=== PATIENT | female | born 1945 | race Caucasian/White ===

== ENCOUNTER 2021-01-08 21:38 | Inpatient (IN) | payer OTHER, BC, SELFPAY ==
[~2021-01-08] VITALS: Ht 162.6 cm; Wt 56.7 kg
[2021-01-08 21:40] VITALS: BP_SYST 169
--- NOTE | 2021-01-08 21:40 | NUR ---
PT TO BED 2 FOR EVALUATION, GOWNED AND ATTACHED TO [facility] [place]. REPORT GIVEN TO JAVIER ROB WHO WILL ASSUME CARE.
[2021-01-08] MEDS ORDERED: cefTRIAXone 1 GM IVPB PREMIX 50 ML IV ONE (21:45)
[2021-01-08] MEDS ORDERED: NACL 0.9% 1,000 ML IV ONE (21:45)
--- NOTE | 2021-01-08 21:50 | NUR ---
PT AAO BIB AMBULANCE FOR WORSENING CONFUSION SINCE A FEVER STARTED TODAY. FAMILY REPORTED THAT FEVER WAS 101.2 AT HOME BUT PRESENTLY IS 98.0 ORAL ON ARRIVAL. PT REPORTS WORSENING HEADACHE, VERTIGO, AND SOB. FAMILY REPORTS HER CONFUSION WORSENING TODAY BEHAVING STRANGELY SINCE THIS MORNING. PT REPORTS CURRENT PAIN LEVEL 6/10 IN HEAD. PT NOTED TACHY AT 103 AND RR OF 28.
--- NOTE | 2021-01-08 21:56 | NUR ---
ER at bedside examining patient.
[2021-01-08] MEDS ORDERED: ACETAMINOPHEN 500 MG TABLET PO ONE (22:00)
[2021-01-08 22:05] LABS: BILIRUBIN,URINE NEGATIVE (NEGATIVE); BLOOD, URINE NEGATIVE (NEGATIVE); CLARITY/URINE CLEAR (CLEAR); COLOR,URINE YELLOW (YELLOW); GLUCOSE,URINE NEGATIVE (NEGATIVE); KETONES,URINE NEGATIVE (NEGATIVE); LEUKOCYTE ESTERASE ,URINE NEGATIVE (NEGATIVE); NITRITE, URINE NEGATIVE (NEGATIVE); PH,URINE 7.5 (5.0-8.0); PROTEIN URINE NEGATIVE (NEGATIVE); UROBILINOGEN,URINE 0.2 (0.2-1.0)
[2021-01-08 22:18] LABS: BASOPHILS % (AUTO) 0.3 % (0.0-2.0); EOSINOPHILS % (AUTO) 0.1 % (0.0-4.0); HEMATOCRIT 35.9 % (36-48); HEMOGLOBIN 12.3 g/dL (12.0-16.0); LYMPHOCYTES # (AUTO) 1.2 K/uL (1.0-5.5); LYMPHOCYTES % (AUTO) 11.2 % (20.5-51.5); MEAN CORPUSCULAR HEMOGLOBIN 34 pg (27-31); MEAN CORPUSCULAR HGB CONC 34 % (32-36); MEAN CORPUSCULAR VOLUME 99 fL (79.0-98.0); MONOCYTES # (AUTO) 1.1 K/uL (0.0-1.0); MONOCYTES % (AUTO) 9.8 % (1.7-9.3); NEUTROPHILS # (AUTO) 8.6 K/uL (1.8-7.7); NEUTROPHILS % (AUTO) 78.6 % (40.0-70.0); PLATELET COUNT (AUTO) 271 K/uL (130-430); RED BLOOD CELL COUNT(AUTO) 3.64 MIL/uL (4.2-6.2); RED CELL DISTRIBUTION WIDTH 11.9 % (9.0-15.0); WHITE BLOOD COUNT (AUTO) 10.9 K/uL (4.8-10.8)
--- NOTE | 2021-01-08 22:20 | NUR ---
X-ray at bedside.
--- NOTE | 2021-01-08 22:35 | NUR ---
COVID-19 swabs collected and sent lab.
[2021-01-08 22:36] LABS: ANION GAP 19 (5-15); CALCIUM 9.2 mg/dL (8.4-11.0); CHLORIDE 102 mmol/L (98-107); CREATININE 1.25 mg/dL (0.55-1.30); GLUCOSE 104 mg/dL (70-99); SODIUM SERUM 140 mmol/L (136-145); UREA NITROGEN, BLOOD 13 mg/dL (8-21)
[2021-01-08 22:41] LABS: ALANINE AMINOTRANSFERASE 13 U/L (12-78); ALBUMIN 3.4 g/dL (3.4-4.8); ASPARTATE AMINOTRANSFERASE 15 U/L (10-37); TOTAL BILIRUBIN 0.7 mg/dL (0.0-1.0)
[2021-01-08 22:44] LABS: POTASSIUM 2.4 mmol/L (3.5-5.1)
[2021-01-08] MEDS ORDERED: KCL 20 mEq in 100 mL (PREMIX) 100 ML IV ONE (23:15)
[2021-01-08] MEDS ORDERED: POTASSIUM CHLORIDE 20 MEQ TAB.PRT.SR PO ONE (23:15)
[2021-01-08] MEDS ORDERED: LORazepam 2 MG/ML VIAL IVP ONE (23:15)
--- NOTE | 2021-01-08 23:18 | NUR ---
Spoke with family () for medications, Patient's family did not remember.
[2021-01-08] MEDS ORDERED: PSEU30TA36 PO (23:54)
[2021-01-08] MEDS ORDERED: AMLO2.5T2 PO (23:54)
[2021-01-08] MEDS ORDERED: APIX2.5T PO (23:54)
[2021-01-08] MEDS ORDERED: FLEC50TA2 PO (23:54)
[2021-01-08] MEDS ORDERED: VITA100T3 PO (23:54)
[2021-01-08] MEDS ORDERED: LEVO42CA2 PO (23:54)
--- NOTE | 2021-01-08 23:55 | NUR ---
Medication reconciliation completed with information provided by patient. Any prior medication reconciliation on file was reviewed and corrected.
--- NOTE | 2021-01-09 00:43 | NUR ---
Patient will be admitted to care of Dr. Reid. Admitted to TELE unit. Will go to room 113B. Belongings list completed. Complete and up to date summary report printed. SBAR report to be given at bedside with opportunity for questions.
--- NOTE | 2021-01-09 00:50 | NUR ---
ADMISSION NOTE Received patient from ER via gurney. Patient admitted with diagnosis of HYPOKALEMIA, ENCEPHALOPATHY. Patient is awake, alert, oriented X 4. Patient oriented to hospital room, call light, toileting, pain management and safety-teach back done. Patient informed that Ebonie will be her nurse and that their room number is 113B. Personal belongings checked and Belongings List documented. Call light within reach.
--- NOTE | 2021-01-09 00:56 | NUR ---
POSSIBLE SEIZURE PT WAS BROUGHT BY ER ON GURNEY AND BEFORE MOVED INTO PATIENT ROOM PT BECAME UNRESPONSIVE, EYES ROLLED BACK, INCONTINENT. PT POSSIBLY HAD NONEPILEPTIC SEIZURE. A CODE WAS CALLED AT THE TIME, AND CHEST COMPRESSIONS BEGAN. PT THEN CAME ALERT AND SAID "NO MORE", PT WAS AWAKE AND COMPLAINING OF HEADACHE PAIN. PT NOT AWARE OF WHAT HAD TRANSPIRED. MD AT BEDSIDE ORDERED CXR, EKG, CT-BRAIN W/O CONTRAST, AND STAT TROPONIN. PT BP WAS 195/[address] NOTIFIED OF SITUATION. ORDERS RECEIVED FOR KEPPRA AND HYDRALAZINE PRN, AND CONSULT FOR DR. NDIAYE. BP TAKEN AGAIN, WAS 178/79 MO OF 89. PT TEMP WAS 98.4. BLOOD SUGAR WAS FOUND TO BE 126.
[2021-01-09] MEDS ORDERED: hydrALAZINE HCL 20 MG/ML VIAL IVP PRN (01:30)
[2021-01-09] MEDS ORDERED: levETIRAcetam 500 MG in NS 100 ML IV SCH (01:30)
[2021-01-09 02:26] VITALS: BP_SYST 146
--- NOTE | 2021-01-09 03:49 | NUR ---
RN ROUNDS PT IT ALERT, CALM. PT ATE APPLE SAUCE AND TURKEY SANDWICH NO DYSPHAGIA NOTED.
--- NOTE | 2021-01-09 05:55 | NUR ---
Consultation Paged Reason for Consultation: Possible Seizures, headache Was consult called: Y Person who was notified: Dr. Lee through text message Consulting Physician: Dr. Pineda (Dr. Lee, Roz is residential construction instructor) Ordering Physician: Angelito Lucas
--- NOTE | 2021-01-09 06:23 | NUR ---
RN ROUNDS PT RESTING IN BED. NO S/S OF DISTRESS NOTED.
--- NOTE | 2021-01-09 07:30 | NUR ---
OPENING NOTE RECEIVED PATIENT FROM NIGHT NURSE. PATIENT IS ALERT AND ORIENTED X4. ON 2 L NASAL CANNULA AND TOLERATING WELL WITH NO SIGNS OF SHORTNESS OF BREATH NOTED. IS AT THE BEDSIDE. IV IS PATENT,L SALINE LOCKED. BED LOCKED AND IN LOWEST POSITION. CALL LIGHT WITHIN REACH. SEIZURE, FALL, AND SAFETY PRECAUTIONS ARE IN PLACE. WILL CONTINUE TO MONITOR.
[2021-01-09] MEDS ORDERED: ZOLPIDEM TARTRATE 5 MG TABLET PO PRN (07:45)
[2021-01-09] MEDS ORDERED: DOCUSATE SODIUM 100 MG/10 ML UDC PO PRN (07:45)
[2021-01-09] MEDS ORDERED: HYDROcodone/ACETAMIN 7.5-325 MG TAB PO PRN (07:45)
[2021-01-09] MEDS ORDERED: ONDANSETRON HCL 4 MG/2 ML VIAL IVP PRN (07:45)
[2021-01-09] MEDS ORDERED: PROMETHAZINE HCL/CODEINE 6.25-10 mg/5 mL UDC PO PRN (07:45)
[2021-01-09] MEDS ORDERED: ACETAMINOPHEN 500 MG TABLET PO PRN (07:45)
[2021-01-09 08:00] VITALS: BP_SYST 141
[2021-01-09] MEDS ORDERED: IPRATROPIUM/ALBUTEROL SULFATE 3 ML AMPUL.NEB (DUONEB) INH ONE (08:00)
[2021-01-09] MEDS ORDERED: POTASSIUM CHLORIDE 40 MEQ, LIDOCAINE JECT 2% PF 100 MG 50 MG in NS 250 ML IV PRN (08:00)
[2021-01-09] MEDS ORDERED: IPRATROPIUM/ALBUTEROL SULFATE 3 ML AMPUL.NEB (DUONEB) INH PRN (08:00)
[2021-01-09 08:36] VITALS: BP_SYST 146
[2021-01-09] MEDS: PANTOPRAZOLE SODIUM 40 MG TAB PO SCH (08:40)
[2021-01-09 08:41] LABS: PROTHROMBIN TIME 10.1 SECS (9.5-12.5)
[2021-01-09] MEDS: APIXABAN 2.5 MG TABLET PO SCH ×2 (08:41→21:30)
[2021-01-09] MEDS: FLECAINIDE ACETATE 50 MG TABLET (TAMBOCOR) PO SCH ×2 (08:42→21:35)
--- NOTE | 2021-01-09 08:52 | NUR ---
CONSULTATION PAGED/CALLED Reason for Consultation: [facility] Person Who was Notified: paged Jose Chatman Consulting Physician: jose vasquez Ordering Physician: destin parmar
[2021-01-09 08:53] LABS: FREE T4 (FREE THYROXINE) 0.6 ng/dL (0.6-1.6); PHOSPHORUS 4.1 mg/dL (2.7-4.5); THYROID STIMULATING HORMONE 1.87 uIu/mL (0.34-4.82)
[2021-01-09 09:07] LABS: ANION GAP 12 (5-15); CALCIUM 7.9 mg/dL (8.4-11.0); CHLORIDE 109 mmol/L (98-107); CREATININE 0.86 mg/dL (0.55-1.30); GLUCOSE 107 mg/dL (70-99); POTASSIUM 3.4 mmol/L (3.5-5.1); SODIUM SERUM 144 mmol/L (136-145); UREA NITROGEN, BLOOD 12 mg/dL (8-21)
[2021-01-09] MEDS: cefTRIAXone 1 GM in D5W 50 ML IV SCH (09:59)
[2021-01-09] MEDS ORDERED: IOHEXOL 350 mgI/mL, 150 ML INFUS..BTL IV ONE (10:55)
[2021-01-09] MEDS: IPRATROPIUM/ALBUTEROL SULFATE 3 ML AMPUL.NEB (DUONEB) INH SCH ×4 (11:00→23:15)
--- NOTE | 2021-01-09 11:54 | NUR ---
EEG EEG DONE. PATIENT IN STABLE CONDITION. CALL LIGHT WITHIN REACH. BED ALARM ON. ALL NEEDS MET. WILL MONITOR.
[2021-01-09 12:18] VITALS: BP_SYST 112
[2021-01-09] MEDS ORDERED: CARB1TAB21 PO (13:09)
--- NOTE | 2021-01-09 13:36 | NUR ---
CT Patient taken to CT scan of chest. Consent signed. In stable condition. Will wait for return to unit.
--- NOTE | 2021-01-09 13:54 | NUR ---
RETURN TO UNIT/ BM Patient returned to unit. In stable condition. Had medium formed bowel movement in commode. Back in bed. Will monitor.
--- NOTE | 2021-01-09 14:37 | NUR ---
MD Rounds Dr. Elliott and Dr. Lee at bedside, assessed patient. No new orders at this time. Will monitor.
[2021-01-09] MEDS: CARBIDOPA/LEVODOPA 25/100 MG TABLET PO SCH ×2 (14:57→21:29)
[2021-01-09 15:00] LABS: BASOPHILS % (AUTO) 0.5 % (0.0-2.0); EOSINOPHILS % (AUTO) 0.1 % (0.0-4.0); HEMATOCRIT 34.1 % (36-48); HEMOGLOBIN 11.4 g/dL (12.0-16.0); LYMPHOCYTES # (AUTO) 1.2 K/uL (1.0-5.5); LYMPHOCYTES % (AUTO) 13.8 % (20.5-51.5); MEAN CORPUSCULAR HEMOGLOBIN 34 pg (27-31); MEAN CORPUSCULAR HGB CONC 34 % (32-36); MEAN CORPUSCULAR VOLUME 100 fL (79.0-98.0); MONOCYTES # (AUTO) 0.8 K/uL (0.0-1.0); MONOCYTES % (AUTO) 9.7 % (1.7-9.3); NEUTROPHILS # (AUTO) 6.4 K/uL (1.8-7.7); NEUTROPHILS % (AUTO) 75.9 % (40.0-70.0); PLATELET COUNT (AUTO) 235 K/uL (130-430); RED BLOOD CELL COUNT(AUTO) 3.39 MIL/uL (4.2-6.2); RED CELL DISTRIBUTION WIDTH 12.2 % (9.0-15.0); WHITE BLOOD COUNT (AUTO) 8.5 K/uL (4.8-10.8)
[2021-01-09 16:17] VITALS: BP_SYST 136
--- NOTE | 2021-01-09 18:32 | NUR ---
CLOSING NOTE PATIENT IS ALERT AND ORIENTED X4. ON 2 L NASAL CANNULA AND TOLERATING WELL WITH NO SIGNS OF SHORTNESS OF BREATH NOTED. IV IS PATENT, SALINE LOCKED. BED LOCKED AND IN LOWEST POSITION. CALL LIGHT WITHIN REACH. SEIZURE, FALL, AND SAFETY PRECAUTIONS REMAIN IN PLACE. WILL ENDORSE TO NIGHT NURSE.
--- NOTE | 2021-01-09 19:30 | NUR ---
OPENING NOTE RECEIVED PATIENT REPORT FROM DAY SHIFT RN. PATIENT IS ALERT AND ORIENTED X4. PATIENT IS RESTING IN HER BED. PATIENT IS BREATHING EASY, UNLAOBRED TO ROOM AIR. NO SIGNS OF RESPIRATORY DISTRESS NOTED. IV IS PATENT AND SALINE LOCKED. BED LOCKED AND IN LOWEST POSITION. CALL LIGHT WITHIN REACH. SEIZURE, FALL, AND SAFETY PRECAUTIONS ARE IN PLACE. WILL CONTINUE TO MONITOR.
[2021-01-09 20:00] VITALS: BP_SYST 138
--- NOTE | 2021-01-09 21:15 | NUR ---
IV PLACEMENT: # 22 gauge angiocath placed to LEFT FOREARM. Use of asceptic technique. Opsite placed over site. Blood return noted. Flushed with 5cc of normal saline. No evidence of infiltration noted. Patient tolerated WELL.
[2021-01-09] MEDS: amLODIPine BESYLATE 5 MG TABLET PO SCH (21:33)
[2021-01-09] MEDS: levETIRAcetam 500 MG in NS 100 ML IV SCH (21:36)
[2021-01-10] VITALS: BP_SYST 122
[2021-01-10] MEDS: IPRATROPIUM/ALBUTEROL SULFATE 3 ML AMPUL.NEB (DUONEB) INH SCH ×6 (03:00→23:00)
--- NOTE | 2021-01-10 04:20 | NUR ---
Swallow Eval Called Left a message to Christy regarding swallow eval, ordered by Angelito Lucas.
[2021-01-10 06:48] LABS: BASOPHILS % (AUTO) 0.6 % (0.0-2.0); EOSINOPHILS # (AUTO) 0.2 K/uL (0.0-0.4); EOSINOPHILS % (AUTO) 2.4 % (0.0-4.0); HEMATOCRIT 31.1 % (36-48); HEMOGLOBIN 10.9 g/dL (12.0-16.0); LYMPHOCYTES # (AUTO) 1.7 K/uL (1.0-5.5); LYMPHOCYTES % (AUTO) 26.2 % (20.5-51.5); MEAN CORPUSCULAR HEMOGLOBIN 35 pg (27-31); MEAN CORPUSCULAR HGB CONC 35 % (32-36); MEAN CORPUSCULAR VOLUME 101 fL (79.0-98.0); MONOCYTES # (AUTO) 0.6 K/uL (0.0-1.0); MONOCYTES % (AUTO) 8.9 % (1.7-9.3); NEUTROPHILS # (AUTO) 4.1 K/uL (1.8-7.7); NEUTROPHILS % (AUTO) 61.9 % (40.0-70.0); PLATELET COUNT (AUTO) 196 K/uL (130-430); RED BLOOD CELL COUNT(AUTO) 3.09 MIL/uL (4.2-6.2); RED CELL DISTRIBUTION WIDTH 12.7 % (9.0-15.0); WHITE BLOOD COUNT (AUTO) 6.6 K/uL (4.8-10.8)
--- NOTE | 2021-01-10 06:56 | NUR ---
CLOSING NOTE PATIENT IS RESTING IN HER BED. PATIENT IS BREATHING EASY, UNLAOBRED TO ROOM AIR. NO SIGNS OF RESPIRATORY DISTRESS NOTED. IV IS PATENT AND SALINE LOCKED. BED LOCKED AND IN LOWEST POSITION. CALL LIGHT WITHIN REACH. SEIZURE, FALL, AND SAFETY PRECAUTIONS ARE IN PLACE. ALL NEEDS ARE MET THROUGHOUT SHIFT. WILL CONTINUE TO MONITOR UNTIL ENDORSE TO DAY SHIFT RN.
--- NOTE | 2021-01-10 06:58 | NUR ---
Nutrition Update Georgi Scale 17 noted. Pt admitted for Hypokalemia and encephalopathy Diet: Cardiac BMI: 21.5 kg/m2 RD to follow per nutrition care standards.
[2021-01-10 07:44] LABS: ALANINE AMINOTRANSFERASE 8 U/L (12-78); ALBUMIN 2.6 g/dL (3.4-4.8); ANION GAP 10 (5-15); ASPARTATE AMINOTRANSFERASE 20 U/L (10-37); CALCIUM 8.2 mg/dL (8.4-11.0); CHLORIDE 108 mmol/L (98-107); CREATININE 0.75 mg/dL (0.55-1.30); GLUCOSE 90 mg/dL (70-99); POTASSIUM 3.3 mmol/L (3.5-5.1); SODIUM SERUM 142 mmol/L (136-145); TOTAL BILIRUBIN 0.1 mg/dL (0.0-1.0); UREA NITROGEN, BLOOD 12 mg/dL (8-21)
[2021-01-10 08:00] VITALS: BP_SYST 136
[2021-01-10] MEDS ORDERED: POTASSIUM CHLORIDE 20 MEQ TAB.PRT.SR PO PRN (09:00)
[2021-01-10] MEDS: levETIRAcetam 500 MG in NS 100 ML IV SCH ×2 (09:56→20:31)
[2021-01-10] MEDS: CARBIDOPA/LEVODOPA 25/100 MG TABLET PO SCH ×3 (09:56→20:33)
[2021-01-10] MEDS: PANTOPRAZOLE SODIUM 40 MG TAB PO SCH (09:57)
[2021-01-10] MEDS: FLECAINIDE ACETATE 50 MG TABLET (TAMBOCOR) PO SCH ×2 (09:59→20:33)
[2021-01-10] MEDS: APIXABAN 2.5 MG TABLET PO SCH ×2 (10:01→20:41)
[2021-01-10] MEDS: cefTRIAXone 1 GM in D5W 50 ML IV SCH (10:25)
--- NOTE | 2021-01-10 11:49 | NUR ---
S.T. SWALLOW EVAL SWALLOW EVAL COMPLETED. PT PRESENTS W/ ML ORAL DYSPHAGIA W/ ML PROLONGED MASTICATION. NO S/S OF ASPIRATION. REC: CONTINUE CURRENT REGULAR TEXTURED DIET. THIN LIQUIDS OK. PT DECLINED CHOPPED DIET. NURSE KEYANA NOTIFIED.
[2021-01-10 12:00] VITALS: BP_SYST 130
[2021-01-10 16:00] VITALS: BP_SYST 123
--- NOTE | 2021-01-10 18:33 | NUR ---
closing notes pt requested for pain med for headache and given. assisted to the br and parminder well. bed to the lowest positiona nd side rails up and locked. call light within reached.
--- NOTE | 2021-01-10 19:30 | NUR ---
OPENING NOTE RCVD PT FROM FRIEDA HERRERA. PT IS A&O X4 RESTING IN BED BREATHING NONLABORED TO ROOM AIR. PT HAS IV ON LFA SALINE LOCKED. SAFETY, SEIZURE, FALL ASPIRATION PRECAUTIONS ALL IN PLACE. PT HAS CALL LIGHT. WILL CONTINUE TO MONTIOR.
[2021-01-10 20:00] VITALS: BP_SYST 126
[2021-01-10] MEDS: amLODIPine BESYLATE 5 MG TABLET PO SCH (20:33)
--- NOTE | 2021-01-10 21:00 | NUR ---
RN ROUNDS PT TOLERATED MEDICATIONS. VITAL SIGNS STABLE. NO PAIN AT THIS TIME.
--- NOTE | 2021-01-10 21:30 | NUR ---
RN NOTE PT IV NOTED TO BE NONPATENT. WILL REMOVE AND START A NEW IV
--- NOTE | 2021-01-10 22:00 | NUR ---
IV PLACEMENT: # 22 gauge angiocath placed to RFA. Use of asceptic technique. Opsite placed over site. Blood return noted. Flushed with 10 cc of normal saline. No evidence of infiltration noted.
[2021-01-11] VITALS: BP_SYST 133
--- NOTE | 2021-01-11 00:30 | NUR ---
RN ROUNDS PT VITAL SIGNS STABLE. PT NO DISTRESS AT THIS TIME. WILL CTM.
[2021-01-11] MEDS: IPRATROPIUM/ALBUTEROL SULFATE 3 ML AMPUL.NEB (DUONEB) INH SCH ×3 (03:00→11:00)
--- NOTE | 2021-01-11 06:33 | NUR ---
CLOSING NOTE PT IS A&O X4 RESTING IN BED BREATHING NONLABORED TO ROOM AIR. PT HAS IV ON RFA#22 SALINE LOCKED. SAFETY, SEIZURE, FALL ASPIRATION PRECAUTIONS ALL IN PLACE. PT HAS CALL LIGHT. WILL CONTINUE TO MONTIOR.
[2021-01-11 06:55] LABS: BASOPHILS % (AUTO) 0.5 % (0.0-2.0); EOSINOPHILS # (AUTO) 0.2 K/uL (0.0-0.4); EOSINOPHILS % (AUTO) 3.2 % (0.0-4.0); HEMATOCRIT 32.4 % (36-48); LYMPHOCYTES # (AUTO) 1.7 K/uL (1.0-5.5); LYMPHOCYTES % (AUTO) 27.1 % (20.5-51.5); MEAN CORPUSCULAR HEMOGLOBIN 34 pg (27-31); MEAN CORPUSCULAR HGB CONC 34 % (32-36); MEAN CORPUSCULAR VOLUME 101 fL (79.0-98.0); MONOCYTES # (AUTO) 0.5 K/uL (0.0-1.0); MONOCYTES % (AUTO) 7.3 % (1.7-9.3); NEUTROPHILS % (AUTO) 61.9 % (40.0-70.0); PLATELET COUNT (AUTO) 186 K/uL (130-430); RED BLOOD CELL COUNT(AUTO) 3.21 MIL/uL (4.2-6.2); RED CELL DISTRIBUTION WIDTH 12.5 % (9.0-15.0); WHITE BLOOD COUNT (AUTO) 6.4 K/uL (4.8-10.8)
[2021-01-11 07:45] LABS: ANION GAP 9 (5-15); CALCIUM 8.6 mg/dL (8.4-11.0); CHLORIDE 108 mmol/L (98-107); CREATININE 0.75 mg/dL (0.55-1.30); GLUCOSE 89 mg/dL (70-99); POTASSIUM 4.1 mmol/L (3.5-5.1); SODIUM SERUM 142 mmol/L (136-145); UREA NITROGEN, BLOOD 20 mg/dL (8-21)
[2021-01-11 08:00] VITALS: BP_SYST 144
--- NOTE | 2021-01-11 08:00 | NUR ---
PT SLEEPING AROUSABLE BY NAME. PT IS O X4 RESTING IN BED BREATHING NONLABORED TO ROOM AIR. VITALS WNL. PT HAS IV ON RFA#22 SALINE LOCKED. SAFETY, SEIZURE, FALL ASPIRATION PRECAUTIONS ALL IN PLACE. PT HAS CALL LIGHT. WILL CONTINUE TO MONITOR.
[2021-01-11] MEDS: PANTOPRAZOLE SODIUM 40 MG TAB PO SCH (08:52)
[2021-01-11] MEDS: CARBIDOPA/LEVODOPA 25/100 MG TABLET PO SCH (08:52)
[2021-01-11] MEDS ORDERED: LEVE500T53 PO (08:52)
[2021-01-11] MEDS: APIXABAN 2.5 MG TABLET PO SCH (08:58)
[2021-01-11] MEDS: FLECAINIDE ACETATE 50 MG TABLET (TAMBOCOR) PO SCH (08:59)
[2021-01-11] MEDS: levETIRAcetam 500 MG in NS 100 ML IV SCH (08:59)
[2021-01-11] MEDS: cefTRIAXone 1 GM in D5W 50 ML IV SCH (09:48)
--- NOTE | 2021-01-11 09:49 | NUR ---
[place] note: Per dr. Ellison's recommendation : CM faxed HH referral and order to [facility], kin/Suni # [phone], tel [phone]. Addendum: 01/11/21 at 1213 by Tierra Cueva RN >> Per Suni, the pt is accepted. [facility] staff will call pt for visiting appoint.-- JAVIER quispe.
[2021-01-11 12:22] VITALS: BP_SYST 144
[2021-01-11 12:25] VITALS: BP_SYST 129
--- NOTE | 2021-01-11 14:05 | NUR ---
Diet education DI provided diet education on the topic of Potassium Content of Food per pt request. Handout from [employer] were provided. [facility] records was saved for the wrong pt, please disregard. RODRIGO RD
--- NOTE | 2021-01-11 14:17 | NUR ---
Dietitian Recommendations * Recommend ONS Ensure Enlive to promote lab trends WNL (provides 350 kcals, 20g protein, 560mg Potassium) * Continue Cardiac diet. Please see Nutritional Assessment for details RODRIGO, RD
== END 2021-01-11 13:30 | disposition home health service (06) | DRG 871 ==
LOC: EDBD 21:38 → SED 21:38 → STU 01-09 00:20
PROVIDERS: ADMIT Family Medicine; ATTEND Family Medicine
PROC: 4A10X4Z Monitoring of Central Nervous Electrical Activity, External Approach (ICD-10-PCS; principal; 2021-01-09)
DX: A41.9 Sepsis, unspecified organism (principal); G93.41 Metabolic encephalopathy; J96.01 Acute respiratory failure with hypoxia; J18.9 Pneumonia, unspecified organism; E87.2 Acidosis; N39.0 Urinary tract infection, site not specified; E87.6 Hypokalemia; G20 Parkinson's disease; I25.10 Atherosclerotic heart disease of native coronary artery without angina pectoris; R56.9 Unspecified convulsions; E87.5 Hyperkalemia; I10 Essential (primary) hypertension; Z20.822 Contact with and (suspected) exposure to COVID-19; Z88.0 Allergy status to penicillin; Z95.5 Presence of coronary angioplasty implant and graft; Z90.710 Acquired absence of both cervix and uterus
CPT/HCPCS: 36415; 70450-TC; 71045; 71275; 76376; 80048; 80053; 80061; 81003; 82150; 82962; 83036; 83605; 83690; 83735; 83880; 84100; 84439; 84443; 84484; 85025; 85610-TC; 85730-TC; 87040-TC; 92610-GN; 93005; 94640; 96361; 96365; 96366; 96367; 96375; 97116-GP; 97530-GP; 99285; G0378; J0696; J1953; J2060; J3480; J7060; Q9967